=== PATIENT | male | born 1960 | race Caucasian/White ===

== ENCOUNTER 2016-12-16 23:09 | Inpatient (IN) | payer SELFPAY ==
[~2016-12-16] VITALS: Ht 172.7 cm; Wt 77.2 kg
[~2016-12-16 23:09] MED LIST: METR500T PO; OMEP20CA9 PO; RIFA550T PO; SPIR100T PO
[2016-12-17 00:22] LABS: BLOOD UREA NITROGEN 15 mg/dL (7-18)
[2016-12-17 02:50] LABS: DAU SCREEN DISCLAIMER
[2016-12-17] MEDS ORDERED: MORPHINE SULFATE 4 MG/ML, 1ML ONE ×2 (05:51→07:02)
[2016-12-17] MEDS ORDERED: ONDANSETRON 2MG/ML, 2ML ONE (05:51)
[2016-12-17] MEDS: MORPHINE SULFATE 4 MG/ML, 1ML IVPush PRN ×2 (05:53→07:03)
[2016-12-17] MEDS ORDERED: ONDANSETRON 2MG/ML, 2ML IVPush ONE (06:00)
[2016-12-17] MEDS ORDERED: THIAMINE 200 MG in SODIUM CHLORIDE 0.9% 50 ML IV ONE (07:00)
[2016-12-17] MEDS ORDERED: MULT-6 PO (07:00)
[2016-12-17] MEDS ORDERED: CYAN100028 PO (07:01)
[2016-12-17] MEDS ORDERED: ONDANSETRON 2MG/ML, 2ML IVPush PRN (07:30)
[2016-12-17] MEDS ORDERED: PROMETHAZINE 25 MG/ML, 1ML IM PRN (07:30)
[2016-12-17 07:52] LABS: ANISOCYTOSIS 2+; HYPOCHROMIA 1+; OVALOCYTES 1+; POLYCHROMASIA 1+
[2016-12-17 07:53] LABS: MICROCYTOSIS 1+
[2016-12-17] MEDS: FOLIC ACID 1 MG, THIAMINE 100 MG, MVI ADULT 10 ML in DEXTROSE 5% 1,000 ML IV SCH (08:40)
[2016-12-17 08:41] VITALS: BP 126/74
[2016-12-17] MEDS ORDERED: MULTIVITAMIN 1 TABLET PO SCH (09:00)
[2016-12-17] MEDS ORDERED: FOLIC ACID 1 MG TABLET PO SCH (09:00)
[2016-12-17] MEDS ORDERED: NICOTINE 21 MG/24 HR PATCH.TD24 TD ONE (09:30)
[2016-12-17] MEDS: SODIUM CHLORIDE 0.9% 1,000 ML IV SCH (14:02)
[2016-12-17] MEDS: NICOTINE 14MG/24 HR PATCH.TD24 TD SCH (23:24)
[2016-12-18] MEDS: SODIUM CHLORIDE 0.9% 1,000 ML IV SCH ×2 (01:28→23:11)
[2016-12-18 04:00] VITALS: BP 158/78
[2016-12-18 04:33] LABS: ASPARTATE AMINO TRANSFERASE 25 U/L (15-37); BLOOD UREA NITROGEN 10 mg/dL (7-18)
[2016-12-18] MEDS ORDERED: THIAMINE 100 MG in SODIUM CHLORIDE 0.9% 50 ML IV SCH (07:00)
[2016-12-18] MEDS ORDERED: MAGNESIUM SULFATE PMX 4GM/100M 100 ML IV ONE (07:30)
[2016-12-18] MEDS: FOLIC ACID 1 MG, THIAMINE 100 MG, MVI ADULT 10 ML in DEXTROSE 5% 1,000 ML IV SCH (09:18)
[2016-12-18] MEDS: morphine SULFATE 10 MG/ML, 1ML IVPush PRN ×4 (09:23→23:10)
[2016-12-18] MEDS ORDERED: LORazepam 2 MG/ML, 1ML IVPush PRN (14:00)
[2016-12-18] MEDS: CHLORDIAZEPOXIDE 25 MG CAPSULE PO SCH ×2 (17:51→21:34)
[2016-12-18] MEDS: NICOTINE 14MG/24 HR PATCH.TD24 TD SCH (21:34)
[2016-12-18] MEDS: OXYcodone IR 5MG TABLET PO PRN (22:40)
[2016-12-19 04:00] VITALS: BP 128/79
[2016-12-19] MEDS: SODIUM CHLORIDE 0.9% 1,000 ML IV SCH ×3 (05:33→22:55)
[2016-12-19] MEDS: OXYcodone IR 5MG TABLET PO PRN ×3 (07:05→22:55)
[2016-12-19 07:08] VITALS: BP 125/85
[2016-12-19] MEDS ORDERED: SODIUM CHLORIDE 0.9% 1,000 ML IV SCH (10:00)
[2016-12-19] MEDS: CHLORDIAZEPOXIDE 25 MG CAPSULE PO SCH ×3 (10:02→21:04)
[2016-12-19] MEDS: FOLIC ACID 1 MG, THIAMINE 100 MG, MVI ADULT 10 ML in DEXTROSE 5% 1,000 ML IV SCH (10:44)
[2016-12-19 12:21] VITALS: BP 122/70
[2016-12-19 19:09] VITALS: BP 116/71
[2016-12-19] MEDS: NICOTINE 14MG/24 HR PATCH.TD24 TD SCH (21:04)
[2016-12-20 02:22] VITALS: BP 137/75
[2016-12-20] MEDS: SODIUM CHLORIDE 0.9% 1,000 ML IV SCH (05:20)
[2016-12-20 07:45] VITALS: BP 130/75
[2016-12-20] MEDS: OXYcodone IR 5MG TABLET PO PRN ×2 (08:10→12:36)
[2016-12-20 13:55] VITALS: BP 127/81
== END 2016-12-20 16:31 | disposition home or self-care (01) | DRG 84 ==
LOC: ED 23:59 → EDIP 12-17 03:26 → CCU 12-17 08:34 → 3NE 12-19 06:55
PROVIDERS: ADMIT Internal Medicine; ATTEND Internal Medicine
PROC: 2W3QX1Z Immobilization of Right Lower Leg using Splint (ICD-10-PCS; principal; 2016-12-16)
DX: S06.309A Unspecified focal traumatic brain injury with loss of consciousness of unspecified duration, initial encounter (principal); S82.831A Other fracture of upper and lower end of right fibula, initial encounter for closed fracture; F10.129 Alcohol abuse with intoxication, unspecified; F17.290 Nicotine dependence, other tobacco product, uncomplicated; S02.2XXA Fracture of nasal bones, initial encounter for closed fracture; D69.6 Thrombocytopenia, unspecified; D63.8 Anemia in other chronic diseases classified elsewhere; Y08.89XA Assault by other specified means, initial encounter; Y93.89 Activity, other specified; Y92.89 Other specified places as the place of occurrence of the external cause; Y99.8 Other external cause status
CPT/HCPCS: 36415; 70450; 71010; 72125; 80048; 80053; 80076; 80307; 81003; 83690; 83735; 84100; 85025; 85610; 85730; 87081; 93005; 96374; 96375; 96376; J2405; J3411; J7070; J2270; J3475; J7030

== ENCOUNTER 2017-09-13 22:28 | Emergency (ER) | payer MEDICAID ==
[~2017-09-13] VITALS: Ht 172.7 cm; Wt 71.1 kg
[~2017-09-13 22:28] MED LIST changes: +ASCO500T6 PO; +CYAN100028 PO; +DOCU-131 PO; +FERR325T18 PO; +MULT-6 PO; +OMEP-110 PO; -RIFA550T PO; +RIFA550T4 PO
[2017-09-13 23:38] LABS: BASOPHILS # (AUTO) 0.06 x10^3/uL (0-0.1); BASOPHILS % (AUTO) 1 % (0-1); EOSINOPHILS # (AUTO) 0.35 x10^3/uL (0-0.4); EOSINOPHILS % (AUTO) 3 % (1-7); LYMPHOCYTES % (AUTO) 13 % (22-44); MD NO; MEAN CORPUSCULAR HEMOGLOBIN 32.8 pg (27.5-34.5); MEAN CORPUSCULAR VOLUME 99.4 fL (81-97); MONOCYTES % (AUTO) 9 % (2-9); NEUTROPHILS % (AUTO) 75 % (42-75); PLATELET COUNT 252 x10^3/uL (130-400); RED BLOOD COUNT 3.53 x10^6/uL (4.38-5.82); RED CELL DISTRIBUTION WIDTH 20.4 % (9.4-14.8)
[2017-09-13 23:50] LABS: ALBUMIN 2.3 g/dL (3.4-5.0); ANION GAP 10 mmol/L (5-15); CHLORIDE 108 mmol/L (98-107)
[2017-09-13 23:55] LABS: CREATININE 0.64 mg/dL (0.7-1.3)
[2017-09-14 02:50] VITALS: BP 112/68
== END 2017-09-14 04:06 | disposition home or self-care (01) ==
LOC: ED 23:59
DX: F10.220 Alcohol dependence with intoxication, uncomplicated (principal); G31.2 Degeneration of nervous system due to alcohol; Z72.89 Other problems related to lifestyle; Z79.899 Other long term (current) drug therapy
CPT/HCPCS: 36415; 70450; 80048; 80307; 82040; 85025; 99285